=== PATIENT | female | born 1980 | race Caucasian/White ===

== ENCOUNTER 2022-05-27 08:55 | Inpatient (IN) | payer MEDICARE, MEDICAID ==
[~2022-05-27] VITALS: Ht 157.5 cm; Wt 104.7 kg
[2022-06-19] MEDS ORDERED: PRIL40 PO (15:25)
[2022-06-19] MEDS ORDERED: VITAMIN D31000 I1 PO (15:26)
[2022-06-19] MEDS ORDERED: MAGNESIUM ELEME30 MG PO (15:27)
[2022-06-19] MEDS ORDERED: NATURAL ST. JO300 MG PO (15:28)
[2022-06-19] MEDS ORDERED: PHARMASSURE CHE30 MG PO (15:28)
[2022-06-19] MEDS ORDERED: VITAMIN B12 781 TAB PO (15:29)
[2022-06-22] VITALS (11 sets, daily range): BP systolic 125–156; BP diastolic 64–81; PULSE 65–96; TEMP 97.3–98.1
[2022-06-22] MEDS ORDERED: VITAMIN D31000 I1 PO (07:27)
[2022-06-22] MEDS ORDERED: TRELEGY ELLIPT1 EACH IH (07:28)
[2022-06-22] MEDS ORDERED: B-12 PO (07:29)
[2022-06-22] MEDS ORDERED: ZINC PO (07:29)
[2022-06-22] MEDS ORDERED: B-121000 MCG PO (07:30)
[2022-06-22] MEDS ORDERED: VITAMINC1000TA PO (07:30)
[2022-06-22] MEDS ORDERED: MAGNESIUM500 MG PO (07:31)
[2022-06-22] MEDS ORDERED: ST. JOHN'S WOR250 MG PO (07:31)
[2022-06-22] MEDS ORDERED: ALBUTEROL0.83 MG/ML IH (07:34)
[2022-06-22] MEDS ORDERED: PRIL40 PO (07:34)
--- NOTE | 2022-06-22 13:00 | NUR ---
Pt. arrived to the floor from PACU. Pt. is very drowsy but reports pain at a 8 on pain scale at this time. Gave meds per orders. Abd. transverse incision cde with gauze. Pt. denies further needs, call light within reach.
--- NOTE | 2022-06-22 20:58 | NUR ---
PT A&O WITH DROWSINESS. PT REPORTS PN A 02/17. TRANSVERSE INCISION CDI. MEDS GIVEN AND ASSESSMENT COMPLETE. VS STABLE. HALL IN PLACE W YELLOW URINE OUTPUT. PT TOLERATING PO AND IV FLUIDS DC'D. INT TO RH PATENT. NO NEEDS AT THIS TIME. CALL LIGHT WITHIN REACH.
[2022-06-23 03:45] VITALS: BP 121/63; PULSE 75; TEMP 98.9
[2022-06-23 07:26] VITALS: BP 123/59; PULSE 89; TEMP 98.4
--- NOTE | 2022-06-23 09:52 | NUR ---
Initial visit; Patient thanked [employer] Clerk for looking in on her and offering prayer and God's blessings. Patient is young and has had some negative issues and the of her close friend recently. [employer] Clerk will keep Amirah in her prayers.
[2022-06-23 11:49] VITALS: BP 126/66; PULSE 95; TEMP 98.6
[2022-06-23 15:51] VITALS: BP 131/57; PULSE 102; TEMP 98.7
--- NOTE | 2022-06-23 15:53 | NUR ---
transit worker met with patient to complete intake and discuss discharge plan. Patient reports that she lives at home in [place] with her son and fiance. Her mother Unique Kellogg ([phone]) is currently at her home and is planning on staying over this next week to help her recover. Patient is normally independent with her ADL's and does not utilize any DME to assist with mobility. She has no home oxygen needs. PCP is Rashida Welch and she utilizes [facility] in for prescriptions with no cost difficulty. Patient states that she does not have a DPOA-HC established. SW established that the patient is legally but is currently in the process of getting a divorce. Education on a DPOA-HC is provided and the patient wishes to complete form during stay. Patient verbalizes that she is needing her nurse for her medications and is wanting something to eat. Patient's RN notified. Discharge plan: Home with family.
[2022-06-23 19:33] VITALS: BP 124/64; PULSE 102; TEMP 97.6
--- NOTE | 2022-06-23 20:09 | NUR ---
PT A&OX4 RESTING IN BED. MEDS GIVEN AND ASSESSMENT COMPLETE. PT DENIES PN BUT REPORTS SOME PRESSURE NEAR HER INCISION. TRANSVERSE INCISION CDI. PT UP AND AMBULATED DOWN THE TANNER, REQUESTING BREATHING TX AFTERWARDS. NO NEEDS AT THIS TIME. CALL LIGHT WITHIN REACH.
[2022-06-23 23:36] VITALS: BP 124/66; PULSE 100; TEMP 98.7
[2022-06-24 07:12] VITALS: BP 116/66; PULSE 99; TEMP 98.4
--- NOTE | 2022-06-24 09:08 | NUR ---
PATIENT IN BATHROOM UPON ARRIVAL. PATIENT C/O PAIN 05/20, REQUESTS PAIN MEDICATION. TRANSVERSE ABDOMINAL SURGICAL SITE, WITH NO DRAINAGE, EDGES WELL APPROXIMATED. ASSESSMENT WNL, AM MEDS ADMINISTERED. ATTEMPTED TO FLUSH IV, PATIENT REMOVED OWN IV DURING THE NIGHT. PATIENT EDUCATED ON THE RISKS OF DOING SO. PATIENT IN BED WITH CALL LIGHT NEAR.
[2022-06-24] MEDS ORDERED: IBU600 MG PO (09:12)
[2022-06-24] MEDS ORDERED: ROXICODONE 55 MG/TAB PO (09:13)
[2022-06-24 11:19] VITALS: BP 116/58; PULSE 104; TEMP 97.1
--- NOTE | 2022-06-24 13:11 | NUR ---
DISCHARGE INSTRUCTIONS PROVIDED. PATIENT EDUCATION GIVEN. FOLLOW UP APPOINTMENTS DISCUSSED. PATIENT DENIES ANY QUESTIONS OR CONCERNS. PATIENT ESCORTED OUT VIA WHEELCHAIR.
== END 2022-06-24 13:30 | disposition home or self-care (01) | DRG 742 ==
LOC: INPTSU 06-22 06:41 → SURG 06-22 09:00
PROVIDERS: ADMIT Obstetrics & Gynecology
PROC: 0UT50ZZ Resection of Right Fallopian Tube, Open Approach (ICD-10-PCS; 2022-06-22)
PROC: 0DNU0ZZ Release Omentum, Open Approach (ICD-10-PCS; 2022-06-22)
PROC: 0UT90ZZ Resection of Uterus, Open Approach (ICD-10-PCS; principal; 2022-06-22 09:00)
PROC: 0UT00ZZ Resection of Right Ovary, Open Approach (ICD-10-PCS; 2022-06-22 09:00)
DX: N83.201 Unspecified ovarian cyst, right side (principal); F31.60 Bipolar disorder, current episode mixed, unspecified; Z68.41 Body mass index [BMI] 40.0-44.9, adult; N85.8 Other specified noninflammatory disorders of uterus; E11.9 Type 2 diabetes mellitus without complications; N92.0 Excessive and frequent menstruation with regular cycle; F60.3 Borderline personality disorder; N73.6 Female pelvic peritoneal adhesions (postinfective); J45.909 Unspecified asthma, uncomplicated; K21.9 Gastro-esophageal reflux disease without esophagitis; F41.9 Anxiety disorder, unspecified; F43.10 Post-traumatic stress disorder, unspecified; J44.9 Chronic obstructive pulmonary disease, unspecified; G47.00 Insomnia, unspecified; N94.5 Secondary dysmenorrhea; G40.909 Epilepsy, unspecified, not intractable, without status epilepticus; E66.9 Obesity, unspecified; I25.2 Old myocardial infarction; Z88.5 Allergy status to narcotic agent; Z88.0 Allergy status to penicillin; Z88.2 Allergy status to sulfonamides; Z88.8 Allergy status to other drugs, medicaments and biological substances
CPT/HCPCS: A4314; J0171; J0690; J1100; J1885; J2175; J2405; J2550; J3010; J7120